=== PATIENT | female | born 1990 ===

== ENCOUNTER 2017-12-07 13:54 | Emergency (ER) | payer SELFPAY ==
--- NOTE | 2017-12-07 15:20 | C.PDOC ---
History Of Present Illness 27 year old female presents to the ED complaining of left lower abdominal pain ongoing for 3 days. Associated symptoms include dysuria. Patient denies any nausea, vomiting, diarrhea, fever, chest pain, cough, SOB, hematuria, frequency , or any other urinary symptoms. Time Seen by Provider: 12/07/17 14:44 Chief Complaint (Nursing): Abdominal Pain History Per: Patient History/Exam Limitations: no limitations Onset/Duration Of Symptoms: Days Current Symptoms Are (Timing): Still Present Location Of Pain/Discomfort: LLQ Associated Symptoms: Urinary Symptoms. denies: Fever, Nausea, Vomiting, Diarrhea, Chest Pain Past Medical History Reviewed: Historical Data, Nursing Documentation, Vital Signs Vital Signs: Last Vital Signs Temp 98.7 F 12/07/17 14:04 Pulse 99 H 12/07/17 14:04 Resp 16 12/07/17 14:04 BP 111/64 12/07/17 14:04 Pulse Ox 99 12/07/17 17:53 - Medical History PMH: No Chronic Diseases Surgical History: No Surg Hx Family History: States: No Known Family Hx - Social History Hx Alcohol Use: No Hx Substance Use: No - Immunization History Hx Tetanus Toxoid Vaccination: No Hx Influenza Vaccination: No Hx Pneumococcal Vaccination: No Review Of Systems Except As Marked, All Systems Reviewed And Found Negative. Gastrointestinal: Positive for: Abdominal Pain Genitourinary: Positive for: Dysuria Physical Exam - Physical Exam Appears: Non-toxic, No Acute Distress Skin: Warm, Dry Head: Atraumatic, Normacephalic Eye(s): bilateral: Normal Inspection Nose: Normal Oral Mucosa: Moist Neck: Supple Chest: Symmetrical Cardiovascular: Rhythm Regular, No Murmur Respiratory: Normal Breath Sounds, No Rales, No Rhonchi, No Wheezing Gastrointestinal/Abdominal: Tenderness (LLQ), No Distention, No Guarding, No Rebound Extremity: Bilateral: Atraumatic, Normal Color And Temperature, Normal ROM Neurological/Psych: Oriented x3, Normal Speech Gait: Steady ED Course And Treatment - Laboratory Results Result Diagrams: 12/07/17 15:23 12/07/17 15:23 O2 Sat by Pulse Oximetry: 99 (RA) Pulse Ox Interpretation: Normal - CT Scan/US US transvaginal Other Rad Studies (CT/US): Read By Radiologist, Radiology Report Reviewed CT/US Interpretation: Accession No. : [id number]. Patient Name / ID : HERRERA ABREU / [id number]. Exam Date : 12/07/2017 16:11:44 ( Approved ). Study Comment : Sex / Age : F / 27Y. Creator : Farhad Mckenzie MD. Dictator : Farhad Mckenzie MD. Sales Effectiveness Manager : Lead Cook : Farhad Mckenzie MD. Approver2 : Report Date : 12/07/2017 17:19:41. My Comment : . Date of service: 12/07/2017. HISTORY: abd pain. COMPARISON: None available. TECHNIQUE: Transvaginal ultrasonography of the pelvis was performed in longitudinal and transverse projections. Transabdominal ultrasonography was attempted however a impinges the urinary bladder was not filled at the time of imaging. FINDINGS: UTERUS: Measures 8.0 x 4.5 x 5.9 cm. Uterus is normal in size appearing retroverted and retroflexed. No fibroid or other mass lesion seen. ENDOMETRIUM: Measures 13.0 mm in diameter. Unremarkable. CERVIX: No cervical abnormality identified. RIGHT OVARY: Measures 3.4 x 3.1 x 2.7 cm. No solid mass. Normal flow. LEFT OVARY: Measures 3.0 x 2.4 x 2.2 cm. No solid mass. Normal flow. FREE FLUID: Trace complex fluid is seen in the cul-de-sac of uncertain origin. OTHER FINDINGS: None. IMPRESSION: Limited cul-de-sac fluid appearing slightly complex in nature, of uncertain origin. Remainder of the examination is unremarkable. Medical Decision Making Medical Decision Making: Impression: Abdominal pain Plan: - Labs - Pepcid 20mg IVP - Toradol 30mg IVP - Zofran 4mg IVP - UA - US transvaginal 1801 - patient states improvement. discussed results. Will discharge patient home to follow up with medical clinic in 2 days Disposition Counseled Patient/Family Regarding: Studies Performed, Diagnosis, Need For Followup, Rx Given - Disposition Referrals: [facility] [Outside] Disposition: HOME/ ROUTINE Disposition Time: 18:02 Condition: STABLE Additional Instructions: follow up with your doctor or medical clinic within 2 days call to make an appointment take medications as prescribed return to ER if symptoms worsens or progress Prescriptions: Naproxen [Naprosyn] 500 mg PO BID PRN #16 tab PRN Reason: Pain, Moderate (4-7) Ondansetron ODT [Zofran ODT] 4 mg PO TID PRN #12 odt PRN Reason: Nausea/Vomiting Instructions: Acute Abdomen (Belly Pain), Adult (DC) Forms: Gen Discharge Inst Grenadian, Message Systems (Grenadian) Print Language: UPPER SORBIAN - Clinical Impression Clinical Impression: Abdominal pain - Scribe Statement The provider has reviewed the documentation as recorded by the Scribreyna Kim All medical record entries made by the Damariibreyna were at my direction and personally dictated by me. I have reviewed the chart and agree that the record accurately reflects my personal performance of the history, physical exam, medical decision making, and the department course for this patient. I have also personally directed, reviewed, and agree with the discharge instructions and disposition.
[2017-12-07 15:23] LABS: SQUAMOUS EPITHIAL 1 /hpf (0-5); URINE BILIRUBIN NEGATIVE (NEGATIVE); URINE BLOOD 2+ (NEGATIVE); URINE CLARITY Hazy (Clear); URINE COLOR Yellow (YELLOW); URINE GLUCOSE (UA) NORMAL (Normal); URINE LEUKOCYTE ESTERASE NEG Leu/uL (Negative); URINE PROTEIN NEGATIVE (NEGATIVE); URINE UROBILINOGEN NORMAL mg/dL (0.2-1.0)
[2017-12-07 15:29] LABS: BASO % 0.5 % (0.0-2.0); EOS # 0.1 K/uL (0.0-0.7); EOS % 1.3 % (0.0-4.0); HEMOGLOBIN 12.4 g/dL (11.0-16.0); LYMPH # 1.2 K/uL (1.0-4.3); LYMPH % 22.6 % (20.0-40.0); MEAN CELL VOLUME 83.9 fL (81.0-99.0); MEAN CORPUSCULAR HEMOGLOBIN 28.7 pg (27.0-31.0); MEAN CORPUSCULAR HGB CONC 34.3 g/dL (33.0-37.0); MEAN PLATELET VOLUME 9.3 fL (7.2-11.7); MONO # 0.7 K/uL (0.0-0.8); MONO % 13.4 % (0.0-10.0); NEUT # 3.4 K/uL (1.8-7.0); NEUT % 62.2 % (50.0-75.0); RBC 4.33 Mil/uL (3.80-5.20); RED CELL DISTRIBUTION WIDTH 13.2 % (11.5-14.5); WHITE BLOOD COUNT 5.4 K/uL (4.8-10.8)
[2017-12-07 15:42] LABS: ALB/GLOB RATIO 1.4 (1.0-2.1); ALBUMIN 4.2 g/dL (3.5-5.0); ALT/SGPT 26 U/L (9-52); AST/SGOT 16 U/L (14-36); BLOOD UREA NITROGEN 12 mg/dL (7-17); CALCIUM 9.3 mg/dl (8.6-10.4); GFR AFRICAN-AMERICAN > 60; GFR NON-AFRICAN AMERICAN > 60; LIPASE 56 U/L (23-300)
--- NOTE | 2017-12-07 17:21 | US ---
Date of service: 12/07/2017 HISTORY: abd pain COMPARISON: None available. TECHNIQUE: Transvaginal ultrasonography of the pelvis was performed in longitudinal and transverse projections. Transabdominal ultrasonography was attempted however a impinges the urinary bladder was not filled at the time of imaging. FINDINGS: UTERUS: Measures 8.0 x 4.5 x 5.9 cm. Uterus is normal in size appearing retroverted and retroflexed. No fibroid or other mass lesion seen. ENDOMETRIUM: Measures 13.0 mm in diameter. Unremarkable. CERVIX: No cervical abnormality identified. RIGHT OVARY: Measures 3.4 x 3.1 x 2.7 cm. No solid mass. Normal flow. LEFT OVARY: Measures 3.0 x 2.4 x 2.2 cm. No solid mass. Normal flow. FREE FLUID: Trace complex fluid is seen in the cul-de-sac of uncertain origin. OTHER FINDINGS: None. IMPRESSION: Limited cul-de-sac fluid appearing slightly complex in nature, of uncertain origin. Remainder of the examination is unremarkable.
[2017-12-07 18:25] VITALS: BP 100/64; PULSE 58; RESP 14; TEMP 98.8
[2017-12-07 18:33] VITALS: O2SAT 99
== END 2017-12-07 18:25 | disposition home or self-care (01) ==
LOC: C.ER 13:54
DX: R10.32 Left lower quadrant pain (principal)
CPT/HCPCS: 76830; 80053; 81001; 83690; 84703; 85025; 87086; 87491; 87591; 96374; 96375; 99285; J1885; J2405